=== PATIENT | female | born 1990 | race Two or more races ===

== ENCOUNTER 2017-08-17 19:20 | Emergency (ER) | payer OTHER ==
[~2017-08-17] VITALS: Ht 175.3 cm; Wt 102.5 kg
[~2017-08-17 19:20] MED LIST: IMODIUM A-D2 MG PO; PEPCID40 MG PO; ZOFRAN4 MG PO
[2017-08-17] MEDS ORDERED: KETO10TA2 PO (22:36)
== END 2017-08-17 22:53 | disposition home or self-care (01) ==
LOC: ER 19:20
DX: S20.211A Contusion of right front wall of thorax, initial encounter (principal); W18.39XA Other fall on same level, initial encounter; Y93.89 Activity, other specified; Y92.091 Bathroom in other non-institutional residence as the place of occurrence of the external cause; Y99.8 Other external cause status

== ENCOUNTER 2017-08-27 12:19 | Emergency (ER) | payer OTHER ==
[~2017-08-27] VITALS: Ht 175.3 cm; Wt 102.5 kg
[~2017-08-27 12:19] MED LIST changes: +KETO10TA2 PO
== END 2017-08-27 22:46 | disposition home or self-care (01) ==
LOC: ER 12:19
DX: J35.01 Chronic tonsillitis (principal)